=== PATIENT | female | born 2005 | race Hispanic/Latino ===

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

== ENCOUNTER → 2025-04-01 11:57 | Outpatient (REF) | payer OTHER, SELFPAY | LOC: RCS 11:57 | PROVIDERS: ATTENDING PHYSICIAN Nurse Practitioner Family | DX: F90.2 Attention-deficit hyperactivity disorder, combined type (principal) | CPT/HCPCS: 93005 ==